=== PATIENT | male | born 2000 | race Caucasian/White ===

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

== ENCOUNTER 2021-09-21 10:38 | Emergency (ER) | payer BC ==
[~2021-09-21] VITALS: Ht 190.5 cm; Wt 81.8 kg
[2021-09-21 10:47] VITALS: TEMP 97.7
[2021-09-21] MEDS ORDERED: ANTIVERT 25MG25 MG PO (11:13)
[2021-09-21] MEDS ORDERED: ZOFRAN ODT4 MG PO (11:13)
[2021-09-21 11:29] VITALS: BP 118/70; PULSE 65
== END 2021-09-21 11:29 | disposition home or self-care (01) ==
LOC: COL.ER 10:38
DX: S06.0X0A Concussion without loss of consciousness, initial encounter (principal); R04.0 Epistaxis; Z28.310 Unvaccinated for COVID-19; Z91.410 Personal history of adult physical and sexual abuse; X58.XXXA Exposure to other specified factors, initial encounter